=== PATIENT | male | born 1940 | race African-American/Black ===

== ENCOUNTER 2017-05-01 09:38 | Outpatient (CLI) | payer MEDICARE, MEDICAID ==
--- NOTE | 2017-05-01 14:23 | ULT ---
LEFT UPPER EXTREMITY VENOUS DUPLEX ULTRASOUND INCLUDING COLOR AND SPECTRAL DOPPLER IMAGING: HISTORY: A 76-year-old male with a history of left arm edema and swelling. The visualized left internal jugular, subclavian, axillary, brachial, and radial and ulnar veins demo nstrate phasic flow with normal compressibility and normal augmentation. Visualized basilic and ceph alic veins appear patent. IMPRESSION: Extensive subcutaneous edema and swelling. No evidence for deep venous thrombosis. POS: [facility]
== END 2017-05-01 09:39 | disposition home or self-care (01) ==
LOC: ULT 09:38
PROVIDERS: ATTEND Family Medicine
DX: M79.89 Other specified soft tissue disorders (principal); R60.0 Localized edema

== ENCOUNTER 2017-09-25 14:56 | Emergency (ER) | payer MEDICARE, MEDICAID ==
[2017-09-25 15:21] LABS: #Basophils 0.1 thou/uL (0.0-0.2); #Eosinphils 0.1 thou/uL (0.0-0.7); #Monocytes 0.9 thou/uL (0.11-0.59); #Neutrophils 3.6 thou/uL (1.40-6.50); %Basophils 0.7 % (0.0-1.0); %Eosinophils 1.7 % (0.0-10.0); %Lymphocytes 45.5 % (21.0-51.0); %Monocytes 10.3 % (0.0-10.0); %Neutrophils 41.8 % (42.0-75.0); Hemoglobin 13.2 g/dL (14.0-18.0); Mean Corpuscular HGB CONC 32.8 g/dL (32.0-36.0); Mean Corpuscular Hemoglobin 28.3 pg (27.0-31.0); Mean Corpuscular Volume 86.5 fL (78.0-98.0); Mean Platelet Volume 10.6 fL (7.4-10.4); Platelet Count 236 thou/uL (130-400); RBC Distribution Width 13.8 % (11.5-14.5); Red Blood Cell (RBC) Count 4.65 mill/uL (4.70-6.10); White Blood Cell (WBC) Count 8.7 thou/uL (4.8-10.8)
[2017-09-25 15:49] LABS: Bilirubin Negative (Negative); Blood, Urine Moderate (Negative); Clarity TURBID (Clear); Glucose, Urine (Dipstick) Negative (Negative); Leukocyte Large (Negative); Nitrite Negative (Negative); Protein, Urine (Dipstick) 300 mg/dL (Neg-Trace)
[2017-09-25 15:53] LABS: Hyaline Casts/LPF 4-6 HYALINE CAST LPF (0-3 Hyaline); Pathc Cast-AUWi Flag 1.32 (0-2.49); Squamous Epithelial None Seen HPF (0-3)
--- NOTE | 2017-09-25 15:55 | RAD ---
PORTABLE CHEST ONE VIEW: Date: 09-25-17 Time: 2:48 p.m. History: Altered mental status. FINDINGS/IMPRESSION: Comparison made with exam of 11-17-15. The heart size is enlarged. No lobar consolidation, pneumothoraces, juarez pleural edema or large effu sions are seen. POS: [facility]
--- NOTE | 2017-09-25 15:56 | CT ---
CT BRAIN WITHOUT CONTRAST: HISTORY: Left-sided deficits and difficulty speaking. FINDINGS: Comparison is made with the exam of 11/17/15. There are changes of cortical atrophy, chronic small-vessel ischemic disease, and old basal ganglion infarctions. The ventricular size is appropriate the basilar cisterns patent. No evidence of acute infarct, hemorrhage, midline shift, or abnormal extraaxial fluid collections seen. The bony calvariu m is intact. The visualized paranasal sinuses and mastoid air cells are well aerated. IMPRESSION: No CT evidence of acute intracranial process. Findings are discussed over the telephone with Dr. Phoenix Capps in the emergency room at 3:05 p.m. CODE CR POS: [facility]
[2017-09-25 16:04] LABS: Bacteria/HPF 3+ HPF (None Seen); Yeast-All Forms None Seen HPF (None Seen)
[2017-09-25] MEDS ORDERED: cefTRIAXone\\ROCEPHIN 1 GM VIAL ONE (16:24)
[2017-09-25 16:37] LABS: PTT 33.8 SEC (22.9-36.1); Prothrombin Time 13.6 SEC (12.0-14.7)
[2017-09-25 16:45] LABS: ALT (SGPT) Less than 7 U/L (8-55); AST (SGOT) 8 U/L (5-34); Albumin 3.2 g/dL (3.4-4.8); Alkaline Phosphatase 93 U/L (40-150); Anion Gap 12 mmol/L (10-20); BUN (Urea Nitrogen) 17 mg/dL (8.4-25.7); Bilirubin, Total 0.5 mg/dL (0.2-1.2); CK (CPK) 65 U/L (30-200); Calc. Creatinine Clearance 0 mL/min (70-130); Calcium 8.9 mg/dL (7.8-10.44); Carbon Dioxide 26 mmol/L (23-31); Chloride 104 mmol/L (98-107); Estimated GFR-MDRD 38; Globulin 4.1 g/dL (2.4-3.5); Glucose 117 mg/dL (83-110); Lipase 9 U/L (8-78); Potassium 4.5 mmol/L (3.5-5.1); Protein, Total 7.3 g/dL (5.8-8.1); Sodium 137 mmol/L (136-145)
[2017-09-25 16:48] LABS: CKMB 1.6 ng/mL (0-6.6); Troponin I Less than 0.010 ng/mL (< 0.028)
[2017-09-25] MEDS ORDERED: hydrALAZINE 20 MG/ML VIAL ONE (16:56)
== END 2017-09-25 18:10 ==
LOC: ERS 14:56
DX: R47.01 Aphasia (principal); I10 Essential (primary) hypertension; N39.0 Urinary tract infection, site not specified; E11.40 Type 2 diabetes mellitus with diabetic neuropathy, unspecified; Z86.73 Personal history of transient ischemic attack (TIA), and cerebral infarction without residual deficits; F32.9 Major depressive disorder, single episode, unspecified; Z79.899 Other long term (current) drug therapy; Z79.4 Long term (current) use of insulin; Z79.82 Long term (current) use of aspirin
CPT/HCPCS: 36415; 36416; 51701; 70450; 71045; 80053; 81003; 81015; 82553; 83690; 83880; 84146; 84484; 85025; 85610; 85730; 87077; 87086; 93005; 96365; 96375; J0360; J0696

== ENCOUNTER 2018-02-02 13:35 | Emergency (ER) | payer MEDICARE, MEDICAID ==
[2018-02-02 14:27] LABS: #Basophils 0.1 thou/uL (0.0-0.2); #Eosinphils 0.1 thou/uL (0.0-0.7); #Lymphocytes 3.5 thou/uL (1.20-3.40); #Monocytes 1.6 thou/uL (0.11-0.59); #Neutrophils 11.3 thou/uL (1.40-6.50); %Basophils 0.6 % (0.0-1.0); %Eosinophils 0.4 % (0.0-10.0); %Lymphocytes 21.3 % (21.0-51.0); %Monocytes 9.5 % (0.0-10.0); %Neutrophils 68.3 % (42.0-75.0); Hemoglobin 12.2 g/dL (14.0-18.0); Mean Corpuscular HGB CONC 32.7 g/dL (32.0-36.0); Mean Corpuscular Hemoglobin 28.1 pg (27.0-31.0); Mean Corpuscular Volume 85.9 fL (78.0-98.0); Mean Platelet Volume 8.3 fL (7.4-10.4); Platelet Count 244 thou/uL (130-400); RBC Distribution Width 13.1 % (11.5-14.5); Red Blood Cell (RBC) Count 4.35 mill/uL (4.70-6.10); White Blood Cell (WBC) Count 16.6 thou/uL (4.8-10.8)
[2018-02-02 14:46] LABS: ALT (SGPT) 10 U/L (8-55); AST (SGOT) 15 U/L (5-34); Alkaline Phosphatase 101 U/L (40-150); Anion Gap 14 mmol/L (10-20); BUN (Urea Nitrogen) 23 mg/dL (8.4-25.7); Bilirubin, Total 0.8 mg/dL (0.2-1.2); Calc. Creatinine Clearance 0 mL/min (70-130); Calcium 9.3 mg/dL (7.8-10.44); Carbon Dioxide 24 mmol/L (23-31); Chloride 105 mmol/L (98-107); Estimated GFR-MDRD 35; Globulin 4.9 g/dL (2.4-3.5); Glucose 133 mg/dL (83-110); Potassium 5.1 mmol/L (3.5-5.1); Protein, Total 7.9 g/dL (5.8-8.1); Sodium 138 mmol/L (136-145)
--- NOTE | 2018-02-02 15:06 | CT ---
HEAD CT WITHOUT CONTRAST: Date: 02/02/18 HISTORY: Left-sided deficits from previous stroke. Resolved weakness. COMPARISON: 09/25/17. FINDINGS: No parenchymal hemorrhage or extra-axial hematoma. No midline shift. Basilar cisterns are patent. Age -appropriate atrophy. Cortical mejia-white matter differentiation is preserved. Ventricles and sulci a re patent and symmetric. Stable white matter hypodensities due to chronic small vessel ischemic change. Adequate aeration of the sinuses and mastoid air cells. Calvarium is intact. IMPRESSION: No acute intracranial process. POS: [facility]
[2018-02-02 15:54] LABS: Bilirubin Negative (Negative); Blood, Urine Moderate (Negative); Clarity TURBID (Clear); Glucose, Urine (Dipstick) Negative (Negative); Leukocyte Large (Negative); Nitrite Negative (Negative); Protein, Urine (Dipstick) 100 mg/dL (Neg-Trace); Specific Gravity, Urine 1.009 (1.002-1.036)
[2018-02-02 15:56] LABS: Squamous Epithelial 0-3 HPF (0-3)
[2018-02-02 16:04] LABS: Pathc Cast-AUWi Flag 19.47 (0-2.49); Yeast-AUWi Flag 395.2 (0-25.0)
--- NOTE | 2018-02-02 16:05 | RAD ---
PORTABLE CHEST 1 VIEW: Date: 02/02/18 Time: 1522 hours HISTORY: Wheezing. FINDINGS: Comparison made with exam of 09/25/17. The heart size is borderline. No focal areas of consolidation, pneumothorax, juarez pulmonary edema, o r pleural effusions are seen. IMPRESSION: No radiographic evidence of acute cardiopulmonary process. POS: [facility]
[2018-02-02 16:17] LABS: Bacteria/HPF 4+ HPF (None Seen); Hyaline Casts/LPF 0-3 HYALINE CAST LPF (0-3 Hyaline)
[2018-02-02 16:18] LABS: Manual Microscopic Reviewed? No Path Casts Seen; Yeast-All Forms None Seen HPF (None Seen)
--- NOTE | 2018-02-07 12:03 | EKG ---
Test Reason : Blood Pressure : / mmHG Vent. Rate : 083 BPM Atrial Rate : 083 BPM P-R Int : 210 ms QRS Dur : 096 ms QT Int : 386 ms P-R-T Axes : 089 -42 106 degrees QTc Int : 453 ms Sinus rhythm with 1st degree A-V block Possible Left atrial enlargement Left axis deviation Abnormal QRS-T angle, consider primary T wave abnormality Abnormal ECG Confirmed by ZBIGNIEW NGUYEN D.O. ([id number]), communications editor IGOR VAN ([id number]) on 02/07/2018 12:02:28 PM Referred By: Confirmed By:ZBIGNIEW NGUYEN D.O.
== END 2018-02-02 17:17 ==
LOC: ERS 13:35
DX: R53.1 Weakness (principal); I10 Essential (primary) hypertension; E11.40 Type 2 diabetes mellitus with diabetic neuropathy, unspecified; Z79.4 Long term (current) use of insulin
CPT/HCPCS: 36415; 70450; 71045; 80053; 81003; 81015; 85025; 93005

== ENCOUNTER 2018-04-02 19:16 | Inpatient (IN) | payer MEDICARE, MEDICAID ==
[2018-04-02 20:03] LABS: Bilirubin Negative (Negative); Blood, Urine Large (Negative); Clarity TURBID (Clear); Glucose, Urine (Dipstick) Negative (Negative); Leukocyte Large (Negative); Nitrite Negative (Negative); Protein, Urine (Dipstick) 300 mg/dL (Neg-Trace); Specific Gravity, Urine 1.015 (1.002-1.036)
[2018-04-02 20:04] LABS: Hyaline Casts/LPF 0-3 HYALINE CAST LPF (0-3 Hyaline); Squamous Epithelial None Seen HPF (0-3)
[2018-04-02 20:06] LABS: Yeast-AUWi Flag 320.5 (0-25.0)
[2018-04-02 20:07] LABS: Bacteria/HPF 1+ HPF (None Seen); RBC/HPF GREATER THAN 50-TNTC HPF (0-3); Yeast-All Forms None Seen HPF (None Seen)
[2018-04-02 20:12] LABS: Amphetamine Not Detected (NotDetected); Barbiturates Screen Not Detected (NotDetected); Benzodiazepine Screen Not Detected (NotDetected); Cocaine Metabolite Screen Not Detected (NotDetected); Medtox Control Line Valid? VALID (VALID); Medtox Reader # READER 1; Methadone Not Detected (NotDetected); Methamphetamine Not Detected (NotDetected); Opiate Screen Not Detected (NotDetected); Oxycodone Screen Not Detected (NotDetected); Phencyclidine (PCP) Not Detected (NotDetected); THC/Cannabinoid Screen Not Detected (NotDetected); Tricyclic Screen Not Detected (NotDetected)
--- NOTE | 2018-04-02 20:54 | RAD ---
RIGHT FOOT THREE VIEWS: HISTORY: Discoloration of the third and fifth toes. Right foot pain. FINDINGS: No fracture, dislocation, bony destruction, or periosteal reaction is seen. There are small calcanea l spurs. There are vascular calcifications. IMPRESSION: No radiographic evidence of acute osteomyelitis. POS: [facility]
[2018-04-02 21:54] LABS: #Basophils 0.1 thou/uL (0.0-0.2); #Eosinphils 0.1 thou/uL (0.0-0.7); #Monocytes 2.7 thou/uL (0.11-0.59); #Neutrophils 12.1 thou/uL (1.40-6.50); %Basophils 0.3 % (0.0-1.0); %Eosinophils 0.6 % (0.0-10.0); %Lymphocytes 21.1 % (21.0-51.0); %Monocytes 14.1 % (0.0-10.0); %Neutrophils 63.9 % (42.0-75.0); Hemoglobin 9.1 g/dL (14.0-18.0); Mean Corpuscular Hemoglobin 27.9 pg (27.0-31.0); Mean Corpuscular Volume 87.3 fL (78.0-98.0); Mean Platelet Volume 7.6 fL (7.4-10.4); Platelet Count 418 thou/uL (130-400); RBC Distribution Width 14.6 % (11.5-14.5); Red Blood Cell (RBC) Count 3.25 mill/uL (4.70-6.10); White Blood Cell (WBC) Count 18.9 thou/uL (4.8-10.8)
[2018-04-02] MEDS ORDERED: cefTRIAXone\\ROCEPHIN 1 GM VIAL ONE (22:09)
[2018-04-02] MEDS ORDERED: Sodium Chloride 0.9% 100 ML ONE (22:09)
[2018-04-02 22:16] LABS: ALT (SGPT) 11 U/L (8-55); AST (SGOT) 16 U/L (5-34); Albumin 2.5 g/dL (3.4-4.8); Alkaline Phosphatase 175 U/L (40-150); Anion Gap 18 mmol/L (10-20); BUN (Urea Nitrogen) 47 mg/dL (8.4-25.7); Bilirubin, Total 0.3 mg/dL (0.2-1.2); Calc. Creatinine Clearance 0 mL/min (70-130); Calcium 9.3 mg/dL (7.8-10.44); Carbon Dioxide 15 mmol/L (23-31); Chloride 105 mmol/L (98-107); Estimated GFR-MDRD 27; Globulin 6.2 g/dL (2.4-3.5); Glucose 153 mg/dL (83-110); Potassium 5.4 mmol/L (3.5-5.1); Protein, Total 8.7 g/dL (5.8-8.1); Sodium 133 mmol/L (136-145)
--- NOTE | 2018-04-02 22:30 | CT ---
CT BRAIN WITHOUT CONTRAST: HISTORY: Altered mental status. COMPARISON: 02/10/2018 FINDINGS: Changes of cortical atrophy and chronic small vessel ischemic disease are again seen. The ventricula r size is stable and the basilar cisterns are patent. No evidence of acute infarct, hemorrhage, midl ine shift, or abnormal extraaxial fluid collections is seen. The bony calvarium is intact. The visu alized paranasal sinuses and mastoid air cells are well aerated. IMPRESSION: No CT evidence of acute intracranial process. POS: [facility]
--- NOTE | 2018-04-02 22:31 | RAD ---
PORTABLE CHEST ONE VIEW: 04/02/2018 10:04 p.m. HISTORY: Altered mental status. COMPARISON: 02/02/2018 FINDINGS: The heart size is normal. No focal areas of consolidation, pneumothorax, juarez pulmonary edema, or p leural effusions are seen. IMPRESSION: No acute process. POS: [facility]
[2018-04-02] MEDS ORDERED: HumaLOG 300 UNITS/3 ML VIAL ONE (22:35)
[2018-04-02] MEDS ORDERED: Dextrose 50% Abboject 50 ML SYRINGE ONE (22:35)
[2018-04-02] MEDS ORDERED: Insulin Regular 300 UNITS/3 ML VIAL ONE (22:38)
[2018-04-02] MEDS ORDERED: Ondansetron PF 4 MG/2 ML Vial IVP PRN (23:11)
[2018-04-02] MEDS ORDERED: Acetaminophen 325 MG TAB PO PRN (23:11)
[2018-04-02] MEDS ORDERED: Ondansetron ODT 4 MG TAB PO PRN (23:11)
[2018-04-02] MEDS ORDERED: VANCOMYCIN IVPB PRN (23:34)
[2018-04-03 04:25] LABS: Anion Gap 17 mmol/L (10-20); BUN (Urea Nitrogen) 47 mg/dL (8.4-25.7); Calc. Creatinine Clearance 0 mL/min (70-130); Carbon Dioxide 14 mmol/L (23-31); Chloride 107 mmol/L (98-107); Estimated GFR-MDRD 27; Glucose 242 mg/dL (83-110); Potassium 5.3 mmol/L (3.5-5.1); Sodium 133 mmol/L (136-145)
[2018-04-03 05:41] LABS: Hemoglobin 8.8 g/dL (14.0-18.0); Mean Corpuscular HGB CONC 31.3 g/dL (32.0-36.0); Mean Corpuscular Hemoglobin 27.5 pg (27.0-31.0); Mean Corpuscular Volume 87.7 fL (78.0-98.0); Mean Platelet Volume 7.7 fL (7.4-10.4); Platelet Count 414 thou/uL (130-400); RBC Distribution Width 14.7 % (11.5-14.5); Red Blood Cell (RBC) Count 3.21 mill/uL (4.70-6.10); White Blood Cell (WBC) Count 21.5 thou/uL (4.8-10.8)
[2018-04-03 06:04] LABS: Band 3 % (5-11); Lymphocytes 20 % (21-51); MDiff Complete? YES; Metamyelocyte 2 % (0-0); Monocytes 9 % (0-10); Myelocyte 2 % (0-0); Neutrophil 64 % (42-75)
[2018-04-03] MEDS ORDERED: Ondansetron ODT 4 MG TAB PO PRN (06:14)
[2018-04-03] MEDS ORDERED: Dextrose 5% in Water 1,000 ML IV PRN (06:16)
[2018-04-03] MEDS ORDERED: Dextrose 50% Abboject 50 ML SYRINGE SLOW IVP PRN (06:16)
[2018-04-03] MEDS ORDERED: HumaLOG 300 UNITS/3 ML VIAL SC PRN (06:16)
--- NOTE | 2018-04-03 07:52 | HP ---
PRIMARY CARE DOCTOR: For this patient was Cleopatra Calles MD. CODE STATUS: For this patient was FULL CODE. TIME OF EVALUATION: 10:45 p.m. CHIEF COMPLAINT: For this patient was change in mental status. HISTORY OF PRESENT ILLNESS: This is a 77-year-old male patient with past medical history of previous stroke, neuropathy, diabetes, and hypertension, came to the hospital after having change in mental status for few hours prior to arrival. The patient was sent from custodial. The patient has difficulty speaking due to previous stroke, and today, he was unable to speak, have not been eating properly. The patient also has right foot pain with change in colors in the toes #3 and # 5. Symptoms are severe. REVIEW OF SYSTEMS: Unable to obtain. The patient is nonverbal, unable to give any complete history, although, can answer simple questions with yes or no. PAST SURGICAL HISTORY: Cholecystectomy. PSYCHIATRIC HISTORY: Depression. FAMILY HISTORY: Reviewed and non contributory for current presentation. SOCIAL HISTORY: No alcohol, no drugs. No smoking history. Lives in custodial, [facility]. ALLERGIES: NO KNOWN DRUG ALLERGIES REPORTED. MEDICATIONS: 1. Simvastatin. 2. Potassium chloride. 3. Lasix. 4. Aspirin. 5. Claritin. 6. Carvedilol. 7. Nuedexta. 8. Tramadol. 9. Neurontin. 10. Remeron. PHYSICAL EXAMINATION: VITAL SIGNS: On presentation, blood pressure 146/76 with heart rate 84, respiratory rate was 18. Pain was 0/10. Oxygen saturation was 97% on room air. GENERAL APPEARANCE: The patient is alert, lethargic, seems to be oriented, but only answers some simple yes or no questions with his hand. HEENT: Eyes, normal conjunctivae. Moist oral mucosa. Anicteric. No JVD. RESPIRATORY: Bilateral air entry. No rales. No wheezes. Symmetric expansion. CARDIOVASCULAR: Normal rate, regular rhythm. No murmurs. No gallops. No edema. ABDOMEN: Soft. Normal bowel sounds. MUSCULOSKELETAL: Baseline range of motion and strength. No tenderness. SKIN: Warm and intact. No pallor. No rash. No redness except for the skin in the 3rd and 5th right toes, the patient has change in color, that is blackish. Peripheral pulses are present. Capillary refill seems to intact. NEUROLOGIC: No evidence of any new focal weakness. The patient has a history of multiple stroke in the past with severe damage. Cranial nerves seems to be intact. PSYCHIATRIC: The patient is in good mood. No anxiety. Optimal judgment. IMAGING STUDIES: EKG was reviewed. The patient has a first-degree AV block and no acute changes in the EKG. Brain CT was done. The patient had no CT evidence of intracranial process. Foot x-ray was done. The patient has no radiographic evidence of acute osteomyelitis. The chest x-ray was done. The patient has no acute process. LABORATORY DATA: Labs were reviewed. The patient has a white count of 18.9, hemoglobin 9.1, MCV 87, platelet count was 418. Sodium 133, potassium 5.4, chloride 105, carbon dioxide 15, anion gap 18, with BUN 47, and creatinine 2.76. In previous admission, the creatinine was 2.4, GFR 27, glucose 153, calcium 9.3, total bilirubin 0.3, AST 16, ALT 11, alkaline phosphatase 175, ammonia 18. Serum total protein 9.7, albumin 2.5, globulin 6.2, albumin globulin ratio 0.4. Urine was done and is positive with white count greater than 50, too numerous to count, rbc's greater than 50, too numerous to count. The patient has josé miguel hematuria. ASSESSMENT AND PLAN: The patient was placed in the hospital with following medical problems; 1. Acute encephalopathy, unclear etiology, could be secondary to underlying infection. We will treat the underlying problems. We will monitor the patient' s mentation, it seems to be recovered by the time of my examination. 2. José Miguel hematuria could be secondary to traumatic Lock catheter placement, may need Urology evaluation. 3. Leukocytosis likely secondary to underlying infection, most likely source could be urine, and also the patient has possible gangrene on the toes. The patient has been started on broad-spectrum antibiotics. We will send cultures. We will adjust treatment as per sensitivity. 4. Possible osteomyelitis. The patient has right foot 3rd and 5th toe gangrene with black colors, x-ray did not show osteomyelitis, the patient is in antibiotics, Surgery and then Dr. Iyer have been consulted for further recommendations. 5. Hyponatremia, sodium 133, this is mild, no need for any acute intervention at this point. 6. Hyperkalemia. Potassium 5.4, this is mild, no need for any acute intervention at this point. We will monitor. 7. Severe metabolic acidosis with borderline anion gap. This is likely secondary to acute on chronic kidney injury. 8. Acute on chronic kidney injury. The patient has increased more than 0.3 mg/ dL of creatinine from baseline. We will monitor kidney function, may need Nephro evaluation and assistance with case. 9. Uncontrolled diabetes. Blood sugar 153. Second blood sugar test was 242. We will have to reconcile home medications. We will place the patient on sliding scale for optimal control. 10. Deep vein thrombosis prophylaxis. Job ID: [id number] [facility]
[2018-04-03] MEDS ORDERED: Non-Formulary Item 1 EACH (Insulin Glargine,Hum.Rec.Anlog [Lantus Solostar] 15 UNIT) SQ SCH (09:00)
[2018-04-03] MEDS ORDERED: Enoxaparin Sodium 30 MG/0.3 ML SYRINGE SC SCH (09:00)
[2018-04-03] MEDS ORDERED: LACTOSE REDUCED FOOD PO SCH (09:00)
[2018-04-03] MEDS ORDERED: INSULIN GLARGINE HUM REC ANLOG 28 UNIT SQ SCH (09:00)
[2018-04-03 09:57] LABS: Hemoglobin 8.6 g/dL (14.0-18.0)
--- NOTE | 2018-04-03 13:30 | ULT ---
ULTRASOUND RENAL BILATERAL STANDARD: HISTORY: Hematuria. COMPARISON: None. FINDINGS: The right kidney measures 10.3 x 4.2 x 4.2 cm with moderate right-sided hydroureteral nephrosis. The left kidney measures 7.8 x 5.1 x 4.7 cm asymmetrically smaller than the right kidney. There is a 2. 7 cm exophytic interpolar cyst. The prostate appears to be markedly enlarged. There appears to be a possible mass within the urinary bladder. IMPRESSION: 1. Concern for a mass in the urinary bladder with moderate distention of the urinary bladder with ur ine with indwelling Lock. CT abdomen and pelvis recommended. 2. Moderate right side hydronephrosis may be obstructive from the urinary bladder mass. Again, CT a bdomen and pelvis is recommended. CODE T POS: [facility]
[2018-04-03] MEDS: Insulin Glargine 15 UNITS in Pre-Filled Syringe 1 EACH SC SCH (15:35)
--- NOTE | 2018-04-03 15:54 | HP ---
HISTORY OF PRESENT ILLNESS: August Contreras is a 77-year-old white male, resident of [facility] for more than eight or nine years. He has been nonambulatory for eight or nine years. He has had a previous stroke with dense left hemiparesis for some time. He has developed new right-sided weakness. He has been dysarthric in the past and but now has been found to be unable to speak. The family has noticed this. The patient has had a CT scan of the brain revealing absence of any acute infarct. He is noted to have significant hematuria. He has chronic renal failure with deteriorating renal function and has a right midline IV. Creatinine 2.78, GFR 27, potassium 5.3, sodium 133. I have been asked to see him regarding gangrenous right foot. The family has noticed the patient has been having constant right foot pain. They noticed his when they try to massage his feet in the snf a few days ago. Exam reveals absence of pedal pulses palpable or Dopplerable. He has palpable femoral pulses bilaterally, but nonpalpable popliteal pulse and non-Dopplerable pedal pulses, dorsalis pedis or posterior tibial on the right. He has a Dopplerable only left posterior tibial pulse. He has gangrenous heel and right fifth and third toes. He is unable to move his foot or move his toes. He has severe pain and tenderness in his right foot. Findings were consistent with severe end-stage PAD. He had an arteriogram by Radiology in 2012. He has been seen by Dr. Stallworth in the past. Arteriogram in the last year or two revealed severe disease. The patient is not an interventional or operative candidate for revascularization due to his nonambulatory status and new neurological symptoms. He will need probably a right [id number] amputation at some point if that is the family's wishes. Currently that is not an emergency. He has hematuria, new neurological findings and these will be have to be sorted first. ALLERGIES: NONE. SOCIAL HISTORY: Tobacco abuse in the past. None recently. Alcohol, none. MEDICATIONS: 1. Flomax. 2. Bactrim. 3. Simvastatin. 4. Zoloft. 5. Florastor. 6. K-Dur. 7. Zofran. 8. Ensure. 9. Insulin. 10. Furosemide. 11. Colace. 12. Coreg. 13. Aspirin. 14. Amlodipine. The patient has had a laparoscopic cholecystectomy. He has had arteriograms. PAST MEDICAL HISTORY: Diabetes mellitus, hypertension, depression. correction resident in [place]. PHYSICAL EXAMINATION: VITAL SIGNS: Respiratory rate 18, blood pressure 146/76, heart rate 84. GENERAL: The patient is not able to speak to me. He has unintelligible words. Most of the time, he will not not even try to speak. He does open his eyes and focus on me. HEAD, EYES, EARS, NOSE, AND THROAT: Unremarkable. LUNGS: Clear to auscultation. CARDIAC: Regular rate and rhythm without murmur or gallop. ABDOMEN: Soft, nontender, and nondistended. EXTREMITIES: Palpable femoral pulses bilaterally. Nonpalpable popliteal or distal pulses bilaterally. Dopplerable only posterior tibial left, non-Dopplerable, nonpalpable right pedal pulses. He has gangrene right heel, gangrene of his right third and fifth toes. He has inability to move his foot. He has a cold right foot. He has rest pain with tenderness below his ankle where it is cold. DIAGNOSTIC DATA: CAT scan does not reveal any acute brain changes. Chest x-ray is unremarkable. The patient has significant hematuria and chronic kidney disease. ASSESSMENT AND PLAN: 1. Aphasia with a normal CAT scan per Medical. History of prior strokes, nonambulatory for more than eight years. 2. The rest pain right foot and ankle. He would need amputation in this hospitalization. We will discuss with family their wishes. We would talk to them about considering DNR. 3. Hematuria. 4. Chronic kidney disease. 5. Leukocytosis due to ischemic right foot and other causes. 6. Diabetes. Of note, I have discussed this with Dr. Stallworth, who is in agreement that intervention arteriography is not warranted and palliative care, possible amputation at most is indicated per family wishes. Job ID: [id number]
[2018-04-03 16:04] LABS: Hemoglobin 9.1 g/dL (14.0-18.0); Platelet Count 391 thou/uL (130-400)
[2018-04-03] MEDS ORDERED: Lidocaine 2% 11 ML SYR FS SCH (17:30)
[2018-04-03] MEDS: Docusate 100 MG CAP PO SCH (17:33)
[2018-04-03] MEDS: Saccharomyces boulardii 250 MG CAP PO SCH (17:33)
--- NOTE | 2018-04-03 17:46 | PRG ---
DATE OF SERVICE: 04/03/2018 SUBJECTIVE: The patient is still a bit dysarthric and little encephalopathic. He denies having any significant pain or substantial needs other than he would like to drink some water. OBJECTIVE: VITAL SIGNS: Temperature 97.8, pulse 70, respirations 20, O2 saturation 96% on room air, BP 136/63. GENERAL APPEARANCE: The patient is lying in bed. He does interact and make modify contact. He tends to mumble a bit, very difficult to understand, but he is trying to be interactive. HEART: Regular without significant murmurs. LUNGS: Diminished, but clear bilaterally. ABDOMEN: Soft, nontender, and nondistended. EXTREMITIES: Reveal cold hands and very cold feet without palpable pulses in the lower extremities. His right 5th and 3rd toes are black and necrotic with area of necrosis on the plantar surface of the lateral foot as well. NEUROLOGIC: As above, the patient appears to be eye hemiplegic on the left and currently encephalopathic. LABORATORY DATA: Hemoglobin is 9.1 and glucose 230. Urine culture is growing Staph. IMPRESSION AND PLAN: 1. Acute encephalopathy, likely secondary to some urinary tract infection. The patient has a history of strokes. Brain CT did not show any evidence of new intracranial process. 2. Hematuria. The patient had ultrasound of the kidneys and bladder, which revealed a bladder mass with some possible right hydronephrosis. He has juarez hematuria, and it appears that the Lock is not adequately draining. His bladder was still distended on the ultrasound. A CT was recommended, consulting Urology, discussed with nursing, they can gently try to flush this. It unclear if it is purely clot or if there is actually a neoplasm there as well. 3. Chronic kidney disease, stage 4. 4. Leukocytosis, likely secondary to infectious process. 5. Ischemic toes on the right foot, 3rd and 5th toes are showing some evidence of dry gangrene. He has no pulses and he has colds. He appears to have severe peripheral vascular disease. I ordered arterial duplex Dopplers, however, subsequently discussed the case with Dr. Anderson, who believes the patient simply needs [id number] amputation given the fact that he is nonambulatory and has very poor peripheral circulation, and I believe, he indicated the patient had seen Dr. Stallworth in the past as well, so this is not a new finding. The patient is certainly at high risk either for ischemia or for surgery, especially in light of his renal function. 6. Hyperkalemia secondary to chronic renal disease. 7. Metabolic acidosis with chronic kidney disease. 8. Poorly controlled diabetes. Continue sliding scale as needed. The patient appears to be too encephalopathic to be able to swallow, asking for Speech Therapy consult. I did discuss the patient's code status again with the patient's family and they indicate that they would like to have him full code at this point. We will ask Palliative Care to see the patient as well. Unfortunately, I believe, his overall prognosis is quite poor given his history of strokes, his hemiplegia, his bladder lesion, his encephalopathy, his peripheral vascular disease, etc. Job ID: [id number]
[2018-04-03 17:54] VITALS: BMI 23.4
--- NOTE | 2018-04-03 18:57 | ULT ---
BILATERAL LOWER EXTREMITY ARTERIAL DOPPLER EVALUATION: INDICATIONS: Ischemic extremities bilaterally. FINDINGS: There is a single, monophasic wave-form involving the right common femoral artery. There is a biphas ic, high-velocity wave-form within the mid right profunda femoral artery, with a peak systolic veloci ty of 210 cm per second. There is slow antegrade wave-form seen within the right proximal, mid, and distal superficial femoral artery, extending through the level of the right popliteal artery, with mi nimal antegrade monophasic wave-form seem within the right posterior tibial artery. No apparent wave -form is seen within the anterior tibial artery or the dorsalis pedis artery. There is a biphasic wave-form in the left common femoral artery. There is slow antegrade wave-form s een involving the superficial femoral artery, throughout its segment, as well as the left popliteal a rtery and the left posterior tibial artery. Minimal monophasic wave-forms are seen over the left ant erior tibial artery and the left dorsalis pedis artery. There is no apparent waveform in the left pr ofunda femoral artery. IMPRESSION: Findings consistent with high-grade stenosis involving the distal common femoral artery bilaterally, with slow antegrade monophasic wave-form seem involving both lower extremities. No apparent wave-for ms are demonstrated within the anterior tibial or dorsalis pedis arteries of the right lower extremit y or left profunda femoral artery. POS: [facility]
[2018-04-03] MEDS: Sodium Chloride 0.9% 1,000 ML IV SCH (19:33)
[2018-04-03 19:36] LABS: Platelet Count 390 thou/uL (130-400)
[2018-04-03] MEDS: Tamsulosin HCl 0.4 MG CAP PO SCH (20:19)
[2018-04-03] MEDS: Atorvastatin Calcium 10 MG TAB PO SCH (20:19)
[2018-04-03] MEDS ORDERED: Simvastatin 20 MG TAB PO SCH (21:00)
[2018-04-03] MEDS ORDERED: cefTRIAXone\\ROCEPHIN 1 GM in Sodium Chloride 0.9% 100 ML IVPB SCH (22:00)
--- NOTE | 2018-04-03 22:38 | CON ---
DATE OF CONSULTATION: 04/03/2018 HISTORY OF PRESENT ILLNESS: This is a 77-year-old male I saw today at the request of the Hospitalist Team regarding gross hematuria and possible bladder lesion. The patient was admitted I think last night from a senior care where he has been inpatient for a few years ago. I do not believe he has been managed with indwelling Lock, but he has a Lock and when seeing him on the floor, his urine is grossly bloody. The urinalysis showed greater than 50 white cells, greater than 50 red cells, 1+ bacteria. Hopefully, urine cultures been sent out and his urine culture, which was started yesterday, I guess he was actually yesterday in the ER, is growing out staph species. His blood cultures so far are negative. His hemoglobin was 9.1 when he got here, it is 9.1 late this afternoon. His white count was elevated at 21.5 tag stringer hours at 3:00 a.m., normal platelet count. No coags have been done. His creatinine is elevated. I think he has a history of renal insufficiency. His creatinine is 2.78. He had a renal ultrasound done today that I reviewed. It showed moderately distended bladder with either clot or tumor in the bladder, it is hard to tell what it is. He also had moderate right-sided hydronephrosis. CAT scan has been recommended, but it has not yet been done. The nursing staff did attempt to irrigate out the Lock catheter and obtained some clots, but certainly could not get him clear. PAST MEDICAL HISTORY: He has had a cholecystectomy, history of elevated cholesterol, history of peripheral vascular disease, history of depression. MEDICATIONS: His meds are well listed. It does not look like he was on blood thinners. His abdomen is soft and his bladder is currently not distended. He has poor vascular supply to his lower extremities. He got gangrene I think in one of his feet and Dr. Anderson is seeing for that and amputation I think is being considered. He is unable to talk after history of a stroke. He did have another CT of the head when he came into the emergency center that did not show an acute finding. CURRENT MEDICATIONS: Include Rocephin and vancomycin. He also looks like on Flomax, I do not know if he was on that before. PHYSICAL EXAMINATION: Abdomen is soft. Bladder is not distended. The penis is not circumcised. There are no lesions noted. The foreskin is easily retractable. The testicles descended without mass or tenderness. We did not do a rectal. Removed the indwelling Lock catheter and sterilely prepped and draped and used some xylocaine jelly and passed a 22-Kosovan Lock three-way into the bladder with irrigation port plugged, placed 30 mL in the balloon, then hand irrigated with 4 L of sterile water or sterile saline, getting out numerous clots and getting some benefit by doing this as it is hard to clear up. It appears that I think he probably is not currently actively bleeding. I think a lot of this is old blood just based on how dark it is and how the clots are. We will look at getting hooked up to take some bladder irrigation. He does need a noncontrast CT scan to make sure that he do not have a stone causing the right hydro, maybe get some better idea of what is in his bladder. If he does not clear, will need a cystoscopic exam to get him clear and remove the rest of the clot. We will give him a little bit of time tonight to see if that does happen. In terms of if he has a bladder lesion, we did talk with his sisters about how aggressive they would want to be in pursuing that in somebody of his age with his medical comorbidities. I will follow along with you. Job ID: [id number]
[2018-04-03 23:48] LABS: Hemoglobin 8.5 g/dL (14.0-18.0); Platelet Count 358 thou/uL (130-400)
[2018-04-03 23:55] LABS: Vancomycin, Random 10.2 ug/mL (See Comment)
[2018-04-03] MEDS ORDERED: Vancomycin HCl 1.5 GM in Sodium Chloride 0.9% 250 ML 300 ML IVPB SCH (23:59)
[2018-04-04] MEDS: Vancomycin HCl 1 GM in Premix Bag 1 BAG IVPB SCH (02:14)
[2018-04-04] MEDS: Sodium Chloride 0.9% 1,000 ML IV SCH ×2 (07:25→18:24)
[2018-04-04] MEDS: Insulin Glargine 15 UNITS in Pre-Filled Syringe 1 EACH SC SCH (08:20)
[2018-04-04] MEDS: Saccharomyces boulardii 250 MG CAP PO SCH (08:20)
[2018-04-04] MEDS: Docusate 100 MG CAP PO SCH (08:20)
--- NOTE | 2018-04-04 09:42 | CT ---
CT ABDOMEN AND PELVIS WITHOUT CONTRAST: 04/04/2018 HISTORY: Right-sided hydronephrosis with possible bladder lesion. Irrigation in bladder. COMPARISON: 09/22/2014 FINDINGS: Reticulonodular densities are partially imaged at each lung base, which could be related to infectiou s or inflammatory process. However, followup to complete resolution is recommended. There is eviden ce of bibasilar atelectasis. Post cholecystectomy changes are noted. Previously noted exophytic cystic lesion at the anterior aspect, mid portion, left kidney, is again s een and is stable in size. A smaller hypodense lesion in the inferior pole left kidney is also again seen and unchanged. A few subcentimeter, ovq-pxyfs-dp-characterize, hypodense lesions are present i n the mid portion of the right kidney, not definitely visualized on prior study. There is mild right hydronephrosis with calyectasis on the left and mild prominence of each ureter. No renal or ureteral calculi are seen bilaterally. A Lock catheter is present in the urinary bladder, with increased density material in the urinary bl adder, suggesting hemorrhage. Gas is also present in the urinary bladder, likely related to the cath eterization. The liver, spleen, pancreas, and left adrenal gland demonstrate a normal CT appearance. There is sta ble mild thickening of the right adrenal gland, similar to the study in 2015. Vascular calcifications are seen in the abdominal aorta and involving the iliac arteries. A normal caliber retrocecal appendix is present. There is a small to moderate amount of retained fec al material seen throughout the colon, greatest in the region of the rectum, suggesting constipation. A few scattered colonic diverticula are seen. A small, fat-containing umbilical hernia is again present. No enlarged lymph nodes are seen on this nonenhanced CT scan exam. No free fluid or fluid collection is seen in the abdomen or pelvis. Multilevel degenerative changes are seen within the spine, greatest in the lower lumbar spine. 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 IMPRESSION: 1. Increased density material seen within the urinary bladder, likely related to hemorrhage. A Fole y catheter is present and is placed in the urinary bladder. 2. Bibasilar reticulonodular densities, which may be related to infectious or inflammatory process. Follow-up examination is recommended to ensure resolution. 3. Constipation with a moderate amount of retained fecal material and moderate distention of the rect um. 4. Mild right and minimal left sided hydronephrosis and hydroureter, likely attributable to the hemo rrhage in the urinary bladder. No renal or ureteral calculi are seen. 5. Subcentimeter, mjg-npeff-go-characterize, hypodense lesions in the right kidney with stable lesio ns within the mid portion in the inferior pole left kidney, unchanged compared to a study in 2015. T hese lesions in the left kidney were also present on the study in 2012. 6. Small, fat-containing umbilical hernia. 7. Vascular calcifications. POS: [facility]
[2018-04-04 12:56] LABS: ALT (SGPT) 10 U/L (8-55); AST (SGOT) 11 U/L (5-34); Albumin 2.1 g/dL (3.4-4.8); Alkaline Phosphatase 129 U/L (40-150); Anion Gap 20 mmol/L (10-20); BUN (Urea Nitrogen) 61 mg/dL (8.4-25.7); Bilirubin, Total 0.3 mg/dL (0.2-1.2); Calc. Creatinine Clearance 19 mL/min (70-130); Calcium 8.9 mg/dL (7.8-10.44); Carbon Dioxide 11 mmol/L (23-31); Chloride 111 mmol/L (98-107); Estimated GFR-MDRD 21; Globulin 5.4 g/dL (2.4-3.5); Glucose 165 mg/dL (83-110); Potassium 5.3 mmol/L (3.5-5.1); Protein, Total 7.5 g/dL (5.8-8.1); Sodium 137 mmol/L (136-145)
[2018-04-04] MEDS ORDERED: Bisacodyl 10 MG SUPP PR PRN (15:18)
--- NOTE | 2018-04-04 16:18 | PRG ---
DATE OF SERVICE: 04/04/2018 SUBJECTIVE: August Contreras today continues to have gross hematuria. He is verbalizing better today. OBJECTIVE: VITAL SIGNS: Temperature 97.6, pulse 80, blood pressure 111/54. LABORATORY DATA: White count 21,000, hemoglobin 8.8. Creatinine 3.48, BUN 61, GFR 21, potassium 5.3. CAT scan of the abdomen and pelvis obtained today at 0700 reveals mild hydronephrosis, right constipation noted. The patient continues to have painful right foot, it is cold. He has gangrenous toes and heel. He has had Doppler ultrasound consistent with physical exam, has severe PAD with ischemic right foot, rest pain, and gangrene. I have discussed with Dr. Stallworth and the patient is not a candidate for interventional procedures, both due to chronic renal disease, acute kidney injury, and nonambulatory status. The only solution to relieve his foot pain is above the knee amputation right. The patient's family is not available to discuss this. Dr. Gomez is seeing the patient from urological hematuria standpoint and treating his hematuria. Await discussion with family regarding code status and treatment of his ischemic gangrenous right foot with rest pain. Job ID: [id number]
--- NOTE | 2018-04-04 17:06 | PRG ---
DATE OF SERVICE: 04/04/2018 SUBJECTIVE: The patient is still encephalopathic, not able to converse or interact much. He does wake up, tends to drift back to sleep. OBJECTIVE: VITAL SIGNS: Temperature is 97.6, pulse 80, respirations 18, O2 saturations 86% to 98%, on room air. GENERAL APPEARANCE: As above, encephalopathic. HEART: Regular rate and rhythm without murmurs. LUNGS: Clear with no wheezes or rales noted anteriorly. The patient is unable to cooperate with full deep breaths. ABDOMEN: Soft, nontender, and nondistended with positive bowel sounds. No masses. No organomegaly. EXTREMITIES: Reveal coldness in the feet with right third and fifth toes turned black and some lateral portion of the plantar surface of the foot darkly discolored as well. No palpable pulses. NEUROLOGICAL: Encephalopathic, left-sided hemiplegia. LABORATORY DATA: Sodium 137, potassium 5.3, chloride 111, CO2 is 11, BUN 61, creatinine is 3.48, glucose 165, AST is 11, ALT 10, albumin 2.1. Urinalysis growing MRSA. Blood cultures negative at [address] of abdomen and pelvis reveal persistent density within the urinary bladder, constipation with moderate amount of retained fecal material and moderate distention of the rectum. Mild right, minimal left hydronephrosis and hydroureter. Bibasilar reticular nodular densities, which may be related to infectious or inflammatory process. IMPRESSION AND PLAN: 1. Acute encephalopathy, likely related to infectious etiology and possibly uremia as well. It is unchanged. 2. Hematuria. He is to have some bladder hemorrhage, continues to have Lock drainage. 3. Possible bladder mass. Certainly, a significant amount of clot was removed with flushing the bladder via catheter. He is essentially waiting for some direction from family to determine how aggressive to be. 4. Acxhb-jn-axeutnj kidney disease. BUN and creatinine are significantly elevated today. He has worsening acidosis as well. We will consult Nephrology as the patient appears to be a bit more uremic and acidotic. 5. Leukocytosis, likely due to infection. 6. Peripheral vascular disease with ischemic right third and fifth toes. The patient has severe peripheral vascular disease based on arterial Doppler, duplex. He needs ltdvd-ayp-htop amputation. 7. Hyperkalemia secondary to chronic kidney disease. 8. Metabolic acidosis. 9. Poorly-controlled diabetes. Continue with the sliding scale. 10. The patient has not been able to have good evaluation by Speech Therapy due to his encephalopathy, remains n.p.o. for now. 11. 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 12. Disposition: I talked to the patient's sister, Ms. Moya, again today. I explained that the patient has multiple serious issues going presently. He has a history of the CVA with left-sided hemiplegia. Now, he has apparent active MRSA infection of the urine, where he has significant hemorrhage and possibly a neoplasm. He also has chronic kidney disease, which is now worsening and looks like it is heading in the direction of possible dialysis and he also has severe peripheral vascular disease with ischemia of the right lower extremity, that would likely require amputation above the knee. This would likely result in the patient's kidneys going into failure if they are not already headed that way and result in dialysis. I explained that we need some direction going forward in order to know how aggressive to be in pursuing these things. She indicated that she and her sister were going to come up to the hospital at some point today. I had explained to her that the surgeon was interested in talking to them specifically about these issues as well. Job ID: [id number] MTDD
--- NOTE | 2018-04-04 17:53 | PRG ---
DATE OF SERVICE: 04/04/2018 SUBJECTIVE: I have met with the patient and his two daughters. The patient's is incapacitated and the patient's 's son has power of litigation attorney associate for his , but the son is not related to the patient. The patient's two daughters were the closest relatives and they are present. We had a discussion with the patient, Mr. Contreras, regarding his code status. The patient desires DNR. He does not want amputation of the leg. He does, however, want to proceed with cystoscopy per Dr. Gomez to see if they can stop the bleeding with a reasonable procedure tomorrow. Dr. Gomez will talk to them tomorrow morning earlier hours for the operation at noon. Currently, the patient wants to be DNR. He does not want to be ventilated. He does not want to have CPR. He does not want to have defibrillation. He does not want operations done such as amputation. He does not want to be on dialysis. He does, however, agree to cystoscopy to see if the bladder bleeding can be stopped and he can get rid of his Lock catheter. The patient's renal function is deteriorating and he is likely to become uremic. The family understands this and they do not want dialysis. Job ID: [id number]
--- NOTE | 2018-04-04 18:03 | CON ---
DATE OF CONSULTATION: 04/04/2018 REASON FOR CONSULTATION: Gangrene right foot and sepsis. HISTORY OF PRESENT ILLNESS: A 77-year-old, who has a history of prior CVA with a dense left hemiplegia, type 2 diabetes, hypertension, and peripheral vascular disease, who is a resident of a local care home and developed altered mental status and on arrival, his BP was 140/70, heart rate 84, respiratory rate 18, and O2 saturations were 97% on room air. He is lethargic. The heart exam did not show any murmurs. Abdomen soft and there was evidence of darkness of the third and fifth toes on the right side consistent with gangrene. There is no evidence of fever before admission according to the care home staff. The care home staff reported bladder incontinence and he did not have catheter at the care home. The abdomen appeared somewhat distended, but soft. There is a stage 1 decubitus ulcer in the presacral region. Head CT did not show any abnormalities. Chest x-ray with no active intrathoracic disease noted. The patient was given IV fluids through a peripheral IV access. The peripheral IV access was lost and a central line was placed. Eventually, there was evidence of urinary retention with 750 mL after insertion of Lock catheter with gross hematuria. Currently, Mr. Contreras is awake. He does not appear in distress. He knows his name, did not know where he was and could not give me more specific subjective information. According to the nurse, he had not had any diarrhea. There was some evidence of constipation at the care home. PAST MEDICAL HISTORY: Prior CVA with a dense left hemiplegia, neuropathy, diabetes mellitus type 2. Peripheral vascular disease, and hypertension. PAST SURGICAL HISTORY: Cholecystectomy. SOCIAL HISTORY: Never smoker. Lives in a care home. PHYSICAL EXAMINATION: VITAL SIGNS: Since admission; T-max 98, blood pressure 111/54, pulse 80, respirations 18, and O2 saturation 86% to 98%. SKIN: Remarkable for the dry gangrene of right third and fifth toes and has fairly stage small pressure ulceration in presacral region. The patient has a Lock catheter with juraez hematuria in the bag and has a central line inserted. HEENT: No lymphadenopathy. Ocular movements conjugate. Oral cavity with no identifiable [place] dentures. There is evidence of oral candidiasis. Oral cavity is moist. NECK: Stiff to all directions. LUNGS: Symmetric clear breath sounds. HEART: S1 and S2. Regular rate. Diminished heart sounds. A soft aortic murmur. ABDOMEN: Soft, not distended or tender. No ascites. No bladder distention. EXTREMITIES: Dense left hemiplegia. Pulses are diminished in dorsalis pedis. Could not feel any popliteal pulses either side. IMAGING DATA: Abdomen and pelvis CT with a density material within the urinary bladder, likely hemorrhage, constipation with moderate distention of the rectum, hypodense lesions in the right kidney, and bibasilar reticular nodular densities. Renal ultrasound demonstrated the possible mass in the urinary bladder, which probably represents a hematoma or clotted blood. There is a moderate right-sided hydronephrosis. ASSESSMENT: 1. Prior cerebrovascular accident with cognitive impairment and a dense left hemiplegia. 2. Constipation. 3. Urinary retention with hematuria. 4. Likely invasive urinary infection with pyelonephritis or prostatitis secondary to methicillin-resistant Staph aureus. Thromboembolism is not ruled out. The patient has had a Lock catheter. DISCUSSION: The differential diagnosis includes pyelonephritis versus prostatitis associated with the urinary obstruction. Pyelonephritis is the more likely scenario in view of the obstruction and the moderate hydronephrosis associated with a clot. The gross hematuria was probably present before the insertion of the Lock catheter. He may need irrigation and washout of the bladder and Urology consultation sometimes to remove the clot. Depending on clinical and radiological progress, antimicrobial therapy with vancomycin until there is improvement of the inflammatory process. Discontinue Rocephin. Once there is control of the inflammatory process, then could consider transition to trimethoprim/sulfamethoxazole for outpatient treatment or linezolid. Check duplex ultrasound of left lower extremity. Job ID: [id number]
--- NOTE | 2018-04-04 18:11 | ULT ---
DOPPLER VENOUS ULTRASOUND BOTH LOWER EXTREMITIES 04/04/18 INDICATION: Hemiplegia, hypoxemia, concern for DVT within both lower extremities. TECHNIQUE: Blackmon scale, color doppler and vascular duplex with spectral analysis was performed of the deep venous structures of both lower extremity. Common femoral vein, superficial femoral vein, popliteal vein, p osterior tibial vein, proximal greater saphenous and profunda veins were assessed. FINDINGS: Normal compression, flow, and augmentation seen within the deep venous structures of both lower extre mity. IMPRESSION: No evidence of DVT within both lower extremity. POS: [facility]
[2018-04-04] MEDS: Atorvastatin Calcium 10 MG TAB PO SCH (21:16)
[2018-04-04] MEDS: Tamsulosin HCl 0.4 MG CAP PO SCH (21:17)
[2018-04-05 02:39] LABS: Hemoglobin 7.7 g/dL (14.0-18.0)
[2018-04-05 02:53] LABS: Vancomycin, Random 17.8 ug/mL (See Comment)
[2018-04-05] MEDS: Vancomycin HCl 1 GM in Premix Bag 1 BAG IVPB SCH (03:28)
[2018-04-05 04:39] LABS: #Eosinphils 0.1 thou/uL (0.0-0.7); #Monocytes 1.9 thou/uL (0.11-0.59); #Neutrophils 12.4 thou/uL (1.40-6.50); %Basophils 0.2 % (0.0-1.0); %Eosinophils 0.8 % (0.0-10.0); %Monocytes 10.9 % (0.0-10.0); Hemoglobin 6.6 g/dL (14.0-18.0); Mean Corpuscular HGB CONC 31.5 g/dL (32.0-36.0); Mean Corpuscular Hemoglobin 27.8 pg (27.0-31.0); Mean Corpuscular Volume 88.3 fL (78.0-98.0); Platelet Count 345 thou/uL (130-400); RBC Distribution Width 14.7 % (11.5-14.5); Red Blood Cell (RBC) Count 2.38 mill/uL (4.70-6.10); White Blood Cell (WBC) Count 17.4 thou/uL (4.8-10.8)
[2018-04-05 04:56] LABS: Anion Gap 17 mmol/L (10-20); BUN (Urea Nitrogen) 55 mg/dL (8.4-25.7); Calc. Creatinine Clearance 22 mL/min (70-130); Calcium 8.6 mg/dL (7.8-10.44); Carbon Dioxide 12 mmol/L (23-31); Chloride 115 mmol/L (98-107); Estimated GFR-MDRD 24; Glucose 155 mg/dL (83-110); Potassium 5.2 mmol/L (3.5-5.1); Sodium 139 mmol/L (136-145)
[2018-04-05] MEDS: Saccharomyces boulardii 250 MG CAP PO SCH (08:22)
[2018-04-05] MEDS: Docusate 100 MG CAP PO SCH (08:22)
[2018-04-05] MEDS: Insulin Glargine 15 UNITS in Pre-Filled Syringe 1 EACH SC SCH (08:22)
[2018-04-05] MEDS: Sodium Chloride 0.9% 1,000 ML IV SCH (10:07)
[2018-04-05] MEDS ORDERED: Fentanyl 100 MCG/2 ML VIAL ONE (12:17)
--- NOTE | 2018-04-05 14:41 | OP ---
DATE OF PROCEDURE: 04/05/2018 PREOPERATIVE DIAGNOSES: Gross hematuria, clot retention. POSTOPERATIVE DIAGNOSES: Gross hematuria, clot retention. PROCEDURES PERFORMED: Cysto, clot evacuation, and fulguration of bladder wall lesions. ANESTHESIA: General. ESTIMATED BLOOD LOSS: Probably around 100 mL. FINDINGS: He had no evidence of stricture disease and moderately enlarged prostate gland. A very large fairly well-organized clot in his bladder. He had numerous areas of friable bladder mucosa on the floor and posterior wall for the most part, nothing that looked like bladder tumor or cancer. The ureteral orifices appeared in normal position. They were not involved and I did not see any bloody efflux from them. No biopsies were done. No path was sent. DRAINS PLACED: A 22-Hungarian Lock three-way hooked up to continuous bladder irrigation. DESCRIPTION OF PROCEDURE: After obtaining written and verbal consent from the patient's family, he was taken to the operating suite. He was placed in the supine position on the treatment table. PlexiPulses were placed on his lower extremities and turned on. He was given a general anesthetic and oral obturator intubation. He was placed in dorsal lithotomy position. His Lock catheter was removed. He was sterilely prepped and draped for cystoscopy. Cystoscopy was performed with a 26-Hungarian sheath. This was passed with a 30-degree lens and a visual obturator through the anterior urethra and prostatic urethra into the bladder. It was a resectoscope sheath that we passed. This showed obviously large well-organized clot. We then brought in the Ellik evacuator with multiple times were able to evacuate and this was completely clear. We then brought in the gyrus generator with a bladder tumor loop and Avila with a 30-degree lens. We used this to cauterize bleeding vessels along the floor and posterior wall, had to put some pressure on the anterior wall with an assistance and to get some of the areas that were coming up on the anterior wall. These were all cauterized until no further oozing or bleeding points were noted. At this point, the urine was remarkably clear. The instruments were then removed. Lock catheter was placed. It was hand irrigated. It was clear, sucked up to continuous bladder irrigation. He was taken out of the dorsal lithotomy position, awakened, extubated, and taken by stretcher to the recovery room. Job ID: [id number]
[2018-04-05] MEDS ORDERED: PHENYLEPHRINE-NS 100 MCG/ML 10 ML SYRINGE ONE (14:57)
[2018-04-05] MEDS ORDERED: Dexamethasone 20 MG/5 ML VIAL ONE (14:57)
[2018-04-05] MEDS ORDERED: Ondansetron PF 4 MG/2 ML Vial ONE (14:57)
[2018-04-05] MEDS ORDERED: ePHEDrine 50 MG/ML VIAL ONE (14:57)
[2018-04-05] MEDS ORDERED: Esmolol 100 MG/10 ML VIAL ONE (14:57)
[2018-04-05] MEDS ORDERED: PROPOFOL 200 MG/20 ML VIAL ONE (14:57)
[2018-04-05] MEDS ORDERED: Lidocaine 1% PF 5 ML VIAL ONE (14:57)
[2018-04-05] MEDS ORDERED: Sodium Bicarbonate 150 MEQ in Dextrose 5% in Water 1,000 ML IV SCH (16:15)
--- NOTE | 2018-04-05 16:43 | PQF ---
CLINICAL DOCUMENTATION IMPROVEMENT CLARIFICATION FORM: ICD-10 Updated PLEASE DO AN ADDENDUM TO THE PROGRESS NOTE WITH ANY DOCUMENTATION UPDATES OR ADDITIONS AND CARRY THROUGH TO DC SUMMARY. THANK YOU. DATE: 04/05/2018; 04/06/2018, 04/07 ATTN: Dr. Costello Please exercise your independent, professional judgment in responding to the clarification form. Clinical indicators are provided on the bottom of this form for your review Please check appropriate box(s): [ ] Encephalopathy: Etiology: [ ] Metabolic [ ] Toxic [ x ] Septic [ ] Unspecified [ ] Other (please specify) [ ] Other diagnosis [ ] Unable to determine In addition, please specify: Present on Admission (POA): [ x] Yes [ ] No [ ] Unable to determine For continuity of documentation, please document condition throughout progress notes and discharge summary. Thank You. CLINICAL INDICATORS - SIGNS / SYMPTOMS / LABS PN 04/03: Acute encephalopathy, likely secondary to some urinary tract infection. PN 04/04: Urinalysis growing MRSA. Acute encephalopathy, likely related to infectious etiology and possible uremia as well. RISKS: H&P 04/02: Sent from [facility]. Hx of previous stroke, neuropathy, diabetes, HTN. Acute encephalopathy. José Miguel hematuria could be secondary to traumatic Lock catheter placement. Severe metabolic acidosis with borderline anion gap. Acute on chronic kidney injury. Uncontrolled diabetes. TREATMENT: Order 04/03-04/05: NS IV 75 mls/hr Order 04/04: Vancomycin HCL 1 gm IV Thank you, Kiersten (This form is maintained as a part of the permanent medical record) 2014 [employer], [employer]. All Rights Reserved Kiersten Oscar RN, BSN [email or web address] Office: [phone] [facility]ITALTatyana
--- NOTE | 2018-04-05 16:54 | PDOC.PN ---
- Subjective Encounter Start Date: 04/05/18 Encounter Start Time: 09:00 Doing ok. Denies complaints or needs. Re-affirms that he does not want surgery or dialysis. - Objective Resuscitation Status - Order Detail: 04/04/18 17:38 Resuscitation Status Routine Resuscitation Status: DNAR: NO Resuscitation Discussed with: discussed with pt & daughters Vital Signs & Weight: Vital Signs (12 hours) Temp Pulse Resp BP Pulse Ox 04/05/18 15:21 97.4 F L 88 18 127/70 97 04/05/18 14:40 97.4 F L 91 18 164/84 H 96 04/05/18 08:20 100 04/05/18 07:53 97.6 F 83 16 105/68 100 Weight Admit Weight 173 lb Weight 173 lb I&O: 04/04/18 04/05/18 04/06/18 06:59 06:59 06:59 Intake Total 900 1775 Output Total 500 1000 Balance 400 775 Result Diagrams: 04/05/18 04:21 04/05/18 04:21 Additional Labs: Accuchecks 04/05/18 04/05/18 04/04/18 16:26 05:33 21:22 POC Glucose 193 H 132 H 144 H Phys Exam - Physical Examination Constitutional: NAD Respiratory: no wheezing, no rales, no rhonchi, clear to auscultation bilateral Cardiovascular: RRR, no significant murmur, no rub Gastrointestinal: soft, non-tender, no distention, positive bowel sounds RLE with cold foot and black 3rd and 5th toes. Psychiatric: normal affect Dx/Plan (1) Left hemiplegia Code(s): G81.94 - HEMIPLEGIA, UNSPECIFIED AFFECTING LEFT NONDOMINANT SIDE Status: Acute (2) MRSA (methicillin resistant Staphylococcus aureus) infection Code(s): A49.02 - METHICILLIN RESIS STAPH INFECTION, UNSP SITE Status: Acute (3) Bladder mass Code(s): N32.89 - OTHER SPECIFIED DISORDERS OF BLADDER Status: Acute (4) Hematuria Code(s): R31.9 - HEMATURIA, UNSPECIFIED Status: Acute (5) PAD (peripheral artery disease) Code(s): I73.9 - PERIPHERAL VASCULAR DISEASE, UNSPECIFIED Status: Acute (6) Ischemic necrosis of toe Code(s): I96 - GANGRENE, NOT ELSEWHERE CLASSIFIED Status: Acute (7) Acute on chronic renal failure Code(s): N17.9 - ACUTE KIDNEY FAILURE, UNSPECIFIED; N18.9 - CHRONIC KIDNEY DISEASE, UNSPECIFIED Status: Acute (8) CKD (chronic kidney disease) stage 3, GFR 30-59 ml/min Code(s): N18.3 - CHRONIC KIDNEY DISEASE, STAGE 3 (MODERATE) Status: Acute (9) H/O: CVA (cerebrovascular accident) Code(s): Z86.73 - PRSNL HX OF TIA (TIA), AND CEREB INFRC W/O RESID DEFICITS Status: Acute (10) UTI (urinary tract infection) Status: Acute Qualifiers: Urinary tract infection type: acute cystitis Hematuria presence: without hematuria Qualified Code(s): N30.00 - Acute cystitis without hematuria (11) Sepsis Code(s): A41.9 - SEPSIS, UNSPECIFIED ORGANISM Status: Suspected - Plan * Patient is now DNAR. * He does not want surgery or dialysis. * Discussed with nephrology. Start some bicarb. * Continue abx for MRSA UTI. * Cystoscopy today. * Pending results of cystoscopy, may be able to go back to ID with treatment for infection.
[2018-04-05] MEDS: Atorvastatin Calcium 10 MG TAB PO SCH (20:49)
[2018-04-05] MEDS: Tamsulosin HCl 0.4 MG CAP PO SCH (20:49)
[2018-04-05 21:56] LABS: Anion Gap 16 mmol/L (10-20); BUN (Urea Nitrogen) 48 mg/dL (8.4-25.7); Calc. Creatinine Clearance 26 mL/min (70-130); Calcium 8.3 mg/dL (7.8-10.44); Carbon Dioxide 15 mmol/L (23-31); Chloride 112 mmol/L (98-107); Estimated GFR-MDRD 30; Glucose 311 mg/dL (83-110); Potassium 5.3 mmol/L (3.5-5.1); Sodium 138 mmol/L (136-145)
[2018-04-06] MEDS: Vancomycin HCl 1 GM in Premix Bag 1 BAG IVPB SCH (01:40)
--- NOTE | 2018-04-06 06:59 | CON ---
DATE OF CONSULTATION: 04/05/2018 CONSULTING PHYSICIAN: Dr. Costello. REASON FOR CONSULTATION: Acute kidney injury. REASON FOR ADMISSION: Altered mental status. HISTORY OF PRESENT ILLNESS: A 77-year-old male with a history of CVA, type 2 diabetes, and hypertension, came to the hospital with altered mentation, was found to have elevated creatinine and obstructive uropathy, and Nephrology is consulted. The patient is unable to give a good history. No nausea, vomiting. chest pain. PAST MEDICAL HISTORY: Positive for type 2 diabetes, hypertension, neuropathy, and stroke. PAST SURGICAL HISTORY: Cholecystectomy. HOME MEDICATIONS: 1. Simvastatin. 2. Potassium chloride. 3. Lasix. 4. Aspirin. 5. Claritin. 6. Carvedilol. 7. Tramadol. 8. Neurontin. 9. Remeron. ALLERGIES: NO KNOWN DRUG ALLERGIES. SOCIAL HISTORY: No smoking, alcohol, or illicit drug abuse. FAMILY HISTORY: No history of kidney disease. REVIEW OF SYSTEMS: CONSTITUTIONAL: Negative for weight loss or gain, ability to conduct usual activities. SKIN: Negative for rash, itching. EYES: Negative for double vision, pain. ENT/MOUTH: Negative for nose bleeding, neck stiffness, pain, tenderness. CARDIOVASCULAR: Negative for palpitations, dyspnea on exertion, orthopnea. RESPIRATORY: Negative for shortness of breath, wheezing, cough, hemoptysis, fever or night sweats. GASTROINTESTINAL: Negative for poor appetite, abdominal pain, heartburn, nausea, vomiting, constipation, or diarrhea. GENITOURINARY: Negative for urgency, frequency, dysuria, nocturia. MUSCULOSKELETAL: Negative for pain, swelling. NEUROLOGIC/PSYCHIATRIC: Negative for anxiety, depression. ALLERGY/IMMUNOLOGIC: Negative for skin rash, bleeding tendency. PHYSICAL EXAMINATION: GENERAL: This is a well-built male, in no apparent distress. VITAL SIGNS: Temperature 98.7, pulse 80, respiratory rate 18, and blood pressure Musculoskeletal : No tenderness, No edema HEENT: Atraumatic normocephalic Neck: Supple Cardiovascular: S1S2 heard, Rate and rhythm regular Respiratory: Clear to auscultation Gastrointestinal: Abdomen is soft Dermatologic : No skin rash Neurologic: Alert and awake and oriented X3 No focal neurologic deficits. Moving all the extremities. Psychiatric: Mood and affect normal LABORATORY DATA: Potassium is 5.2, BUN is 52, creatinine is 3.0. ASSESSMENT AND PLAN: 1. Acute kidney injury, most likely obstructive uropathy. We will monitor. 2. Hyperkalemia, most likely secondary to acidosis. Will have bicarb drip. 3. Metabolic acidosis. We will start on bicarb drip and monitor closely. 4. Anemia, rule out any bleed. Most likely from hematuria. 5. Pyuria. 6. Hematuria with obstructive uropathy. Follow up with Urology. Avoid nephrotoxin. No acute indication for dialysis. We will follow closely. Job ID: [id number] [facility]
[2018-04-06 08:22] LABS: Anion Gap 15 mmol/L (10-20); BUN (Urea Nitrogen) 42 mg/dL (8.4-25.7); Calc. Creatinine Clearance 28 mL/min (70-130); Calcium 8.5 mg/dL (7.8-10.44); Carbon Dioxide 17 mmol/L (23-31); Chloride 112 mmol/L (98-107); Estimated GFR-MDRD 32; Glucose 273 mg/dL (83-110); Potassium 4.9 mmol/L (3.5-5.1); Sodium 139 mmol/L (136-145)
[2018-04-06] MEDS: Docusate 100 MG CAP PO SCH (08:55)
[2018-04-06] MEDS: Saccharomyces boulardii 250 MG CAP PO SCH (08:55)
[2018-04-06] MEDS: Insulin Glargine 15 UNITS in Pre-Filled Syringe 1 EACH SC SCH (09:02)
[2018-04-06 09:15] LABS: Band 7 % (5-11); Hemoglobin 7.9 g/dL (14.0-18.0); Lymphocytes 9 % (21-51); MDiff Complete? YES; Mean Corpuscular HGB CONC 32.4 g/dL (32.0-36.0); Mean Corpuscular Hemoglobin 28.5 pg (27.0-31.0); Mean Corpuscular Volume 87.9 fL (78.0-98.0); Mean Platelet Volume 7.7 fL (7.4-10.4); Metamyelocyte 1 % (0-0); Monocytes 5 % (0-10); Neutrophil 78 % (42-75); Nucleated RBC 1 % (0); Platelet Count 301 thou/uL (130-400); Platelet Morphology Comment Appears Adequate; Polychromasia MODERATE = 3-4 cells (100X) (0-2/hpf); RBC Distribution Width 14.8 % (11.5-14.5); Red Blood Cell (RBC) Count 2.78 mill/uL (4.70-6.10); White Blood Cell (WBC) Count 21.1 thou/uL (4.8-10.8)
--- NOTE | 2018-04-06 10:44 | PRG ---
DATE OF SERVICE: 04/06/2018 SUBJECTIVE: Patient was seen and examined at bedside and overnight events noted. Patient denies any shortness of breath or chest pain or palpitation. No history of nausea or vomiting or diarrhea or fever or chills or cramps. OBJECTIVE: GENERAL: This is an elderly male, in no apparent distress. VITAL SIGNS: Temperature 97.8, heart rate 84. Respiratory rate 18. Blood pressure 125/66. HEENT: Atraumatic, normocephalic. Oral mucosa is moist NECK: Supple. CARDIOVASCULAR: S1, S2 heard. Rate and rhythm regular. RESPIRATORY: Clear to auscultation. GASTROINTESTINAL: Abdomen is soft. MUSCULOSKELETAL: No tenderness. No edema. DERMATOLOGIC: No skin rash. NEUROLOGIC: Alert and awake and oriented X3. No focal neurologic deficits. Moving all the extremities. PSYCHIATRIC: Mood and affect normal. LABORATORY DATA: Potassium is 4.9, bicarb 17, and BUN is 42, and creatinine is 2.4. ASSESSMENT AND PLAN: 1. Acute kidney injury on chronic kidney disease, stage 3. Getting better. 2. Chronic kidney disease, stage 3. 3. Hyperkalemia, better. 4. Metabolic acidosis. 5. Obstructive uropathy. 6. Anemia. 7. Hypertension, stable. Renal function is getting better. Avoid nephrotoxins. Continue hydration. Bicarb as tolerated. Job ID: [id number]
--- NOTE | 2018-04-06 13:01 | PDOC.PN ---
- Subjective Encounter Start Date: 04/06/18 Encounter Start Time: 11:30 Patient is a little agitated. He says he is upset with me (and a medical student whom he really hasn't seen before). His speech is difficult to understand and it is not clear why he is upset, but appears that he is just confused. - Objective Resuscitation Status - Order Detail: 04/04/18 17:38 Resuscitation Status Routine Resuscitation Status: DNAR: NO Resuscitation Discussed with: discussed with pt & daughters Vital Signs & Weight: Vital Signs (12 hours) Temp Pulse Resp BP Pulse Ox 04/06/18 07:40 97.8 F 84 18 125/66 93 L 04/06/18 04:19 97.8 F 20 153/63 H Weight Admit Weight 173 lb Weight 173 lb I&O: 04/05/18 04/06/18 04/07/18 06:59 06:59 06:59 Intake Total 1775 2425 Output Total 1000 4200 Balance 775 -1775 Result Diagrams: 04/06/18 07:54 04/06/18 07:54 Additional Labs: Accuchecks 04/05/18 04/05/18 21:10 16:26 POC Glucose 294 H 193 H Phys Exam - Physical Examination Constitutional: NAD sight agitation, but likely at his baseline. Patient refuses exam. Refuses exam. Right foot with new evidence is ischemic of the 4th toe as it is turning black along with the heal, 3rd, 5th toes and plantar surf. Dx/Plan (1) MRSA (methicillin resistant Staphylococcus aureus) infection Code(s): A49.02 - METHICILLIN RESIS STAPH INFECTION, UNSP SITE Status: Acute (2) Bladder mass Code(s): N32.89 - OTHER SPECIFIED DISORDERS OF BLADDER Status: Ruled-out (3) Hematuria Code(s): R31.9 - HEMATURIA, UNSPECIFIED Status: Acute (4) PAD (peripheral artery disease) Code(s): I73.9 - PERIPHERAL VASCULAR DISEASE, UNSPECIFIED Status: Acute (5) Ischemic necrosis of toe Code(s): I96 - GANGRENE, NOT ELSEWHERE CLASSIFIED Status: Acute (6) Acute on chronic renal failure Code(s): N17.9 - ACUTE KIDNEY FAILURE, UNSPECIFIED; N18.9 - CHRONIC KIDNEY DISEASE, UNSPECIFIED Status: Acute (7) CKD (chronic kidney disease) stage 3, GFR 30-59 ml/min Code(s): N18.3 - CHRONIC KIDNEY DISEASE, STAGE 3 (MODERATE) Status: Acute (8) H/O: CVA (cerebrovascular accident) Code(s): Z86.73 - PRSNL HX OF TIA (TIA), AND CEREB INFRC W/O RESID DEFICITS Status: Acute (9) UTI (urinary tract infection) Status: Acute Qualifiers: Urinary tract infection type: acute cystitis Hematuria presence: without hematuria Qualified Code(s): N30.00 - Acute cystitis without hematuria Comment: MRSA (10) Sepsis Code(s): A41.9 - SEPSIS, UNSPECIFIED ORGANISM Status: Suspected (11) Left hemiplegia Code(s): G81.94 - HEMIPLEGIA, UNSPECIFIED AFFECTING LEFT NONDOMINANT SIDE Status: Chronic - Plan * Mental status appears to be back to baseline. * Hematuria was related to friable bladder tissue that has been fulgerated. * Bladder mass was only clot. * Declines intervention for ischemic foot. * Does not want to consider dialysis. * Abx for MRSA UTI. * Can change to oral abx. * Discussed with Palliative Care. They will be meeting with sisters today to determine if they would like to pursue a palliative care setting.
[2018-04-06] MEDS: Atorvastatin Calcium 10 MG TAB PO SCH (20:49)
[2018-04-06] MEDS: Tamsulosin HCl 0.4 MG CAP PO SCH (20:49)
[2018-04-07] MEDS: Vancomycin HCl 1 GM in Premix Bag 1 BAG IVPB SCH (03:42)
--- NOTE | 2018-04-07 08:49 | PRG ---
DATE OF SERVICE: 04/07/2018 SUBJECTIVE: Patient was seen and examined at bedside and overnight events noted. Patient denies any shortness of breath or chest pain or palpitation. No history of nausea or vomiting or diarrhea or fever or chills or cramps. OBJECTIVE: GENERAL: This is a well-built male in no apparent distress. VITAL SIGNS: Temperature 98.3. Heart rate 100. Respiratory rate 18. Blood pressure 110/49. HEENT: Atraumatic, normocephalic. Oral mucosa is moist NECK: Supple. CARDIOVASCULAR: S1, S2 heard. Rate and rhythm regular. RESPIRATORY: Clear to auscultation. GASTROINTESTINAL: Abdomen is soft. MUSCULOSKELETAL: No tenderness. No edema. DERMATOLOGIC: No skin rash. NEUROLOGIC: Alert and awake and oriented X3. No focal neurologic deficits. Moving all the extremities. PSYCHIATRIC: Mood and affect normal. LABORATORY DATA: No labs done today. ASSESSMENT AND PLAN: 1. Acute kidney injury on chronic kidney disease, stage 3. Recheck labs today. 2. Hyperkalemia. Limit potassium intake. 3. Metabolic acidosis. We will monitor. 4. Obstructive uropathy. Follow up with Urology. 5. Anemia. 6. Hypertension, stable. Recheck labs and we will monitor. Further decision will be made based on the lab results. Job ID: [id number]
[2018-04-07] MEDS: Saccharomyces boulardii 250 MG CAP PO SCH (10:06)
[2018-04-07] MEDS: Insulin Glargine 15 UNITS in Pre-Filled Syringe 1 EACH SC SCH (10:06)
[2018-04-07] MEDS: Docusate 100 MG CAP PO SCH (10:08)
[2018-04-07 11:45] VITALS: BP 117/68; TEMP 97.8
--- NOTE | 2018-04-08 19:57 | EKG ---
Test Reason : AMS Blood Pressure : / mmHG Vent. Rate : 084 BPM Atrial Rate : 084 BPM P-R Int : 212 ms QRS Dur : 094 ms QT Int : 392 ms P-R-T Axes : 076 -33 105 degrees QTc Int : 463 ms Sinus rhythm with 1st degree A-V block Possible Left atrial enlargement Left axis deviation Abnormal QRS-T angle, consider primary T wave abnormality Prolonged QT Abnormal ECG Confirmed by NNAMDI BUSTAMANTE DO ([id number]), proposal editor IGOR VAN ([id number]) on 04/08/2018 7:56:56 PM Referred By: Confirmed By:NNAMDI BUSTAMANTE DO
--- NOTE | 2018-04-10 08:57 | DIS ---
DATE OF ADMISSION: 04/02/2018 DATE OF DISCHARGE: 04/07/2018 DISCHARGE DIAGNOSES: 1. Acute septic encephalopathy. 2. Methicillin-resistant Staphylococcus aureus infection of the urinary tract. 3. Bladder clots. 4. Hematuria. 5. Ischemic necrosis of multiple areas of the right foot. 6. Severe peripheral arterial disease. 7. Acute on chronic renal failure. 8. Chronic kidney disease, stage 3. 9. History of cerebrovascular accident with left hemiplegia. 10. Some degree of dementia. HISTORY OF PRESENT ILLNESS: This patient is a 77-year-old male, who presented to the hospital via the emergency department with altered mental status. The patient was referred to the longterm because of inability to speak and poor p.o. intake. The patient also had some discoloration of the toes on his right foot. In the emergency department, the patient was worked up and noted to have leukocytosis with a white count of 18.9. He had evidence of urinary tract infection and juarez hematuria. His BUN was elevated at 47 and creatinine was 2.76, which was above his baseline. The patient's physical exam at that time revealed encephalopathy. He also had evidence of ischemia in his right third and fifth toes. HOSPITAL COURSE: The patient was admitted to the hospital with altered mental status thought to be septic encephalopathy secondary to sepsis related to a urinary tract infection. The patient's exam also noted black discoloration of the patient's right third and fifth toes along with the plantar surface of the lateral distal foot. The patient's feet were cold and there were no pulses palpable and this was felt to be peripheral arterial disease with infarction of the toes and portion of the foot. The patient was started on antibiotic coverage as well as IV fluids. He was seen in consultation by Surgery and by Urology with respect to the patient's hematuria and bladder mass. Urology came and saw the patient and aggressively flushed the bladder via the catheter. There were large amounts of clots that were extracted during this process. Ultimately, I had to speak to the patient's family as his mental status did not allow him to significantly participate in a conversation initially and they were ultimately amenable to having a cystoscopy. A cystoscopy was performed revealing some friable areas of the posterior bladder which were fulgurated, but there was no mass or evidence of neoplasm at that time. Lock catheter remained in place with CBI overnight and ultimate clearing of the gross hematuria. The patient was seen in consultation by General Surgery regarding the right lower extremity. Also, had an arterial Doppler study performed revealing severe and extensive peripheral vascular disease starting fairly high in both legs. Surgery felt the patient's only potential option would be [id number] amputation; however, the patient had indicated he was not interested in that to the best that he could express himself. The patient's family members were not interested in pursuing that either; therefore, no further interventions were entertained. The patient did have progression of the necrotic area to start to include the fourth toe and the heel on the right foot as well. The patient's urine did grow MRSA and the patient was maintained on appropriate antibiotic coverage for that. The patient's renal function initially worsened over a couple of days, but then started to improve. Nephrology was consulted, and initially added a bit of bicarb, but the patient's renal function did come back down to his original presenting numbers. He continued to have reasonable urine output. The patient began refusing blood draws, fingersticks for blood sugar and medications. We had conversations with the patient's family, both myself and Dr. Anderson and they in turn had good conversation with the patient. Ultimately, the decision was made to pursue hospice. The concern was the patient was going to continue to have ischemic problems of his lower extremities, which would likely result in significant toxic nephropathy and worsening renal function. Given the patient's mental status and his significant hemiplegia from prior strokes and his bed-bound status along with his refusal for even basic interventions, it was felt that he was appropriate for Hospice Services. He was evaluated by hospice, and ultimately, the plan was to discharge him to Hospice Services at [facility] once these issues were arranged, the patient was discharged onto their services. His activity is as tolerated. His diet is as tolerated. His further treatment will be per the hospice team. Total time spent in discharge activities, including face to face time with the patient and coordinating care with hospice, CM was 38 min. Job ID: [id number] [facility]TD[facility]
== END 2018-04-07 15:21 | DRG 853 ==
LOC: ERS 19:16 → ERHOLD 22:50 → 2NO 04-03 14:17 → SURG B 04-03 22:57
PROVIDERS: ADMIT Hospitalist; ATTEND Hospitalist
PROC: 06HN33Z Insertion of Infusion Device into Left Femoral Vein, Percutaneous Approach (ICD-10-PCS; 2018-04-02)
PROC: 0T5B8ZZ Destruction of Bladder, Via Natural or Artificial Opening Endoscopic (ICD-10-PCS; principal; 2018-04-05)
PROC: 0TCD8ZZ Extirpation of Matter from Urethra, Via Natural or Artificial Opening Endoscopic (ICD-10-PCS; 2018-04-05)
DX: A41.9 Sepsis, unspecified organism (principal); G93.41 Metabolic encephalopathy; N30.01 Acute cystitis with hematuria; N17.9 Acute kidney failure, unspecified; I69.354 Hemiplegia and hemiparesis following cerebral infarction affecting left non-dominant side; E11.52 Type 2 diabetes mellitus with diabetic peripheral angiopathy with gangrene; I96 Gangrene, not elsewhere classified; E87.1 Hypo-osmolality and hyponatremia; E87.2 Acidosis; N13.30 Unspecified hydronephrosis; R47.01 Aphasia; Z66 Do not resuscitate; B95.62 Methicillin resistant Staphylococcus aureus infection as the cause of diseases classified elsewhere; E11.22 Type 2 diabetes mellitus with diabetic chronic kidney disease; I12.9 Hypertensive chronic kidney disease with stage 1 through stage 4 chronic kidney disease, or unspecified chronic kidney disease; N40.0 Benign prostatic hyperplasia without lower urinary tract symptoms; N18.3 Chronic kidney disease, stage 3 (moderate); I73.9 Peripheral vascular disease, unspecified; N32.89 Other specified disorders of bladder; I44.0 Atrioventricular block, first degree; F32.9 Major depressive disorder, single episode, unspecified; E87.5 Hyperkalemia; D64.9 Anemia, unspecified; K59.00 Constipation, unspecified; L89.151 Pressure ulcer of sacral region, stage 1; Z79.899 Other long term (current) drug therapy; Z79.4 Long term (current) use of insulin; Z79.82 Long term (current) use of aspirin; Z87.891 Personal history of nicotine dependence
CPT/HCPCS: 36415; 36416; 36430; 36556; 51702; 70450; 71045; 74176; 76770; 80048; 80053; 80202; 80306; 81003; 81015; 82140; 82274; 85007; 85025; 85027; 86850; 86900; 86901; 87040; 87077; 87086; 87186; 87633; 93005; 93923; 93970; 96361; 96365; 96375; G0103; J0696; J1100; J1815; J1825; J2001; J2405; J2704; J3010; J3370; J3490; J7050; J7070; P9016